=== PATIENT | female | born 1980 | race Caucasian/White ===

== ENCOUNTER 2020-03-20 13:55 | Emergency (ER) | payer BC, SELFPAY ==
--- NOTE | ~2020-03-20 | XR_ITS ---
EXAMINATION: XR chest 1V portable EXAM DATE: 03/20/2020 16:05 INDICATION: Midsternal chest pain. COVID positive. TECHNIQUE: Portable AP frontal chest x-ray was obtained. There is no prior study for comparison. FINDINGS: The lungs are clear. There are no pleural effusions. The cardiomediastinal silhouette is within normal limits. There is no pneumothorax suspected. The bones and soft tissues are unremarkab le. IMPRESSION: No acute cardiopulmonary findings. Reviewed, dictated and finalized at location B. [facility]AL[facility] MANAGER
[2020-03-20 14:55] VITALS: BP 143/93; PULSE 100; RESP 12; TEMP 36.3; O2SAT 99
--- NOTE | 2020-03-20 14:57 | ECG_ITS ---
Measurements Intervals [place] Rate: 82 P: 73 WA: 152 QRS: -21 QRSD: 109 T: 66 QT: 377 QTc: 442 Interpretive Statements SINUS RHYTHM WITH SINUS ARRHYTHMIA DELAYED PRECORDIAL R/S TRANSITION BASELINE WANDER- I, II, III BORDERLINE ECG Electronically Signed On 03-20-2020 15:06:02 HARD TILE SETTER by Heriberto Scales D.O.
[2020-03-20 15:12] LABS: Basophils Percent Auto 0.2 % (0.2-1.2); Eosinophils Absolute Auto 0.1 K/mm3 (0-0.3); Eosinophils Percent Auto 0.7 % (0-4.4); Hematocrit 43.9 % (37.0-47.0); Immature Granulocyte Absolute 0.03 K/mm3 (0.00-0.031); Immature Granulocyte Percent A 0.4 % (0-0.5); Lymphocytes Absolute Auto 2.06 K/mm3 (0.9-3.2); Lymphocytes Percent Auto 24.1 % (18.3-44.2); Mean Corpuscular HGB Conc 34.2 g/dl (32-36); Mean Corpuscular Hemoglobin 29.7 pg (26-34); Mean Corpuscular Volume 86.9 fl (80-100); Mean Platelet Volume 9.3 fl (7.4-10.4); Monocytes Absolute Auto 0.5 K/mm3 (0.1-0.6); Monocytes Percent Auto 6.2 % (2.6-8.5); Neutrophils Absolute Auto 5.8 K/mm3 (1.3-6.7); Neutrophils Percent Auto 68.4 % (45.5-73.1); Platelet Count Result 304 k/mm3 (150-375); Red Blood Count 5.05 M/mm3 (4.2-5.4); Red Cell Distribution Width 13.2 % (11.5-14.5); White Blood Count 8.5 K/mm3 (4.5-10.0)
[2020-03-20 15:24] LABS: Anion Gap 5 mmol/L (8-16); Blood Urea Nitrogen 12 mg/dL (7-17); Calcium 9.2 mg/dL (8.4-10.2); Carbon Dioxide 25 mmol/L (22-30); Chloride 107 mmol/L (98-107); Estimated CRCL calculation 132 ml/min; Estimated Glomerular Filt Rate > 60; Glucose 96 mg/dL (65-105); Sodium 137 mmol/L (137-145)
[2020-03-20 15:53] VITALS: BP 125/83; PULSE 83; PULSE 94; RESP 21; O2SAT 95
--- NOTE | 2020-03-20 15:53 | PC.NURSE ---
Pt made this RN aware that she is Covid +
--- NOTE | 2020-03-20 16:10 | ED.SOB ---
HPI - SOB/Dyspnea General Chief Complaint: Shortness of Breath/Dyspnea Stated Complaint: covid+, sob Time Seen by Provider: 03/20/20 16:02 Source: patient Mode of arrival: ambulatory Limitations: no limitations History of Present Illness HPI Narrative: A 39-year-old female presented to the emergency department today with complaints of shortness of breath. Patient states she was recently diagnosed with Covid. Dates that she has been dealing with this without any difficulties. Patient notes that today while trying to walk up her stairs at home she felt a slight pressure in her chest felt tingling in her arms and her legs and became very anxious. Patient states that she is a smoker, is worried about what Covid could be doing to her and may have lightened up the anxiety gotten the best of her. Resting in the bed now patient states she is feeling better but still a little anxious. Related Data Allergies Allergy/AdvReac Type Severity Reaction Status Date / Time Penicillins Allergy Mild Unknown Verified 03/20/20 15:58 Tetanus Vaccines and Toxoid Allergy Unknown RASH Verified 03/20/20 15:58 Review of Systems Review of Systems: Narrative: CONSTITUTIONAL: Denies fever, chills, or sweats. EYES: Denies visual changes, redness, or discharge. ENT: Denies rhinorrhea, congestion, sore throat, or otalgia. CARDIOVASCULAR: Denies chest pain, palpitations, or edema. Endorses chest pressure RESPIRATORY: Denies cough or dyspnea. GASTROINTESTINAL: Denies abdominal pain, nausea, vomiting, or diarrhea. GENITOURINARY: Denies dysuria or hematuria. SKIN: Denies rash or itching. MUSCULOSKELETAL: Denies back pain, joint pain, or myalgia. NEUROLOGIC: Denies headache, numbness, dizziness, or weakness. PSYCHIATRIC: Patient states that she is feeling very anxious. PMFSH Social History Social History Smoking packs per day: 0.5 Smoking cigarettes per day: 10.0 Years smoked: 20 Smoking pack-years: 10.00 Smoking status: Current every day smoker Tobacco type: cigarettes Alcohol intake: current Substance use: never Exam Narrative: Exam Narrative: GENERAL: Well-appearing, well-nourished, and in no acute distress. HEAD: Normocephalic, atraumatic. EYES: PERRLA and EOMI. ENT: Nares clear, no rhinorrhea or epistaxis. Mucous membranes moist. Oropharynx without tonsillar hypertrophy exudate or other lesions. Bilateral TMs pearly barrett nonbulging NECK: Supple. No adenopathy or masses. No carotid bruits or JVD CHEST: Clear to auscultation. No respiratory distress. No wheezes rales or rhonchi HEART: Regular rate and rhythm. No murmur heard. Normal peripheral pulses. ABDOMEN: Soft, nontender, nondistended, normal active bowel sounds. EXTREMITIES: Normal range of motion. No edema. SKIN: Warm, dry, no rash. NEURO: No focal deficits. Alert and oriented x3. PSYCH: Patient is very anxious and tearful. Course Reevaluation(s) Reevaluation #1: Patient resting comfortably at this time. She states that her anxiety has much improved. Patient was asking about sinusitis and Covid treatment. She showed me a list of medications that a friend of hers is treating her Covid case with. This consisted of many [id number] herbal supplements. While I informed her that I do not see any downside I could not speak to how effective they would be. We did discuss possibly getting a multivitamin instead which she was in favor of. Patient will be given a prescription for Vistaril for both her anxiety and her sinusitis type symptoms. She was also recommended to take [id number] ibuprofen or Tylenol for aches and pains. Date: 03/20/20 Time: 17:27 Vital Signs Vital signs: Vital Signs Temperature 36.3 C L 03/20/20 14:55 Pulse Rate 100 03/20/20 14:55 Respiratory Rate 12 03/20/20 14:55 Blood Pressure 143/93 H 03/20/20 14:55 Pulse Oximetry 99 03/20/20 14:55 Temperature 36.3 C L 03/20/20 14:55 Pulse
[2020-03-20] MEDS: LORazepam INJ (*CRX) 2 MG/ML VIAL 1 MG IV PUSH (17:17)
[2020-03-20 17:18] LABS: Troponin I < 0.012 ng/mL (0.000-0.034)
[2020-03-20 17:56] VITALS: BP 126/86; PULSE 92; RESP 17; O2SAT 98
== END 2020-03-20 17:55 | disposition home or self-care (01) ==
PROVIDERS: Emergency Medicine; Emergency Provider Emergency Medicine
DX: U07.1 COVID-19 (principal); F41.9 Anxiety disorder, unspecified; F17.210 Nicotine dependence, cigarettes, uncomplicated; R94.31 Abnormal electrocardiogram [ECG] [EKG]
CPT/HCPCS: 36415; 71045; 80048; 84484; 85025; 93005; 96374; 99284; J2060

== ENCOUNTER 2022-07-09 16:25 | Emergency (ER) | payer BC, SELFPAY ==
--- NOTE | 2022-07-09 16:30 | ED.GENADULT ---
HPI - General Adult General Chief complaint: Extremity Problem,Nontraumatic Stated complaint: swelling left leg( vein popped) Time Seen by Provider: 07/09/22 16:33 Source: patient, RN notes reviewed and old records reviewed Mode of arrival: ambulatory Limitations: no limitations History of Present Illness HPI narrative: 42-year-old female presents to the [facility] with concerns of a ?pain popping. ? Patient has a history of varicose veins. Noticed a bruise that was raised to the left anterior lower leg. Came to the [facility] for evaluation. There is no erythema. No swelling noted. Reports being tender to touch. No treatment prior to arrival Related Data Home Medications Medication Instructions Recorded Confirmed No Home Medications 07/09/22 07/09/22 Allergies Allergy/AdvReac Type Severity Reaction Status Date / Time Penicillins Allergy Mild Unknown Verified 03/20/20 15:58 Tetanus Vaccines and Toxoid Allergy Unknown RASH Verified 03/20/20 15:58 Review of Systems Review of Systems: All systems reviewed & are unremarkable except as noted in HPI and below Constitutional: Constitutional: Reports no additional constitutional complaints Eyes: Eyes: Reports no additional eye complaints ENT: Reports system reviewed and no additional complaints, except as documented Cardiovascular: Cardiovascular: Reports no additional cardiovascular complaints, Denies chest pain and Denies dyspnea Respiratory: Respiratory: Reports no additional respiratory complaints, Denies chest congestion, Denies cough and Denies dyspnea Gastrointestinal: Gastrointestinal: Reports no additional gastrointestinal complaints, Denies abdominal pain, Denies nausea and Denies vomiting Musculoskeletal: Musculoskeletal: Reports no additional musculoskeletal complaints Integumentary/Breasts: Skin/Breast: Reports as per HPI Neurologic: Reports system reviewed and no additional complaints, except as documented Psychiatric: Psychiatric: Reports no additional psychiatric complaints Allergic/Immunologic: Allergic/Immunologic: Reports no additional allergic/immunologic complaints [facility] Social History Social History Smoking packs per day: 0.5 Smoking cigarettes per day: 10.0 Years smoked: 20 Smoking pack-years: 10.00 Smoking status: Current every day smoker Tobacco type: cigarettes Alcohol intake: current Substance use: never Comments At the time of my signature, I reviewed and agree with the nursing past medical, surgical, social, and family history. There is no relevant family history pertinent to the patient complaint. Exam Const: General: cooperative, healthy appearing, comfortable, no acute distress, well developed, alert and well nourished Nutritional Appearance: well nourished Orientation/consciousness: patient oriented x3 Limitations: no limitations HENMT: Head: normal to inspection Ears: hearing grossly normal bilaterally and external ears normal Face/Nose/Sinus: Normal external nose present, Normal nares present, Normal nasal mucous membranes and turbinates present and normal facial exam Face and sinus: normal facial exam Eyes: General: appearance normal, both eyes and all related structures Alignment and Position: alignment normal Periorbital: periorbital findings normal Conjunctivae: conjunctivae normal Pupils: Equal, round and reactive pupils present EOM: EOMs intact bilaterally Neck: Neck: normal visual inspection, full ROM, no lymphadenopathy and no meningeal signs Chest: Chest palpation & inspection: normal inspection of the chest Resp: Effort & Inspection: normal respiratory effort and able to speak in complete sentences Auscultation: clear to auscultation bilaterally, no crackles, no rales, no rhonchi and no wheezes Cardio: Rate: regular rate Rhythm: regular rhythm Back/Spine/Pelvis: Cervical Spine: cervical ROM normal Thoracic/Lumbar Spine: No th
[2022-07-09 16:35] VITALS: BP 136/90; PULSE 86; RESP 18; TEMP 36.3; O2SAT 100
== END 2022-07-09 16:43 | disposition home or self-care (01) ==
PROVIDERS: Emergency Provider Nurse Practitioner
DX: I83.92 Asymptomatic varicose veins of left lower extremity (principal); S80.12XA Contusion of left lower leg, initial encounter; X58.XXXA Exposure to other specified factors, initial encounter; F17.210 Nicotine dependence, cigarettes, uncomplicated
CPT/HCPCS: 99212; G0463

== ENCOUNTER 2022-11-22 09:47 | Emergency (ER) | payer BC, SELFPAY ==
--- NOTE | 2022-11-22 09:57 | ED.URI ---
HPI - URI/Sore Throat General Chief Complaint: Upper Respiratory Infection Stated Complaint: congestion Time Seen by Provider: 11/22/22 10:24 Source: patient and RN notes reviewed Mode of arrival: ambulatory Limitations: no limitations History of Present Illness HPI Narrative: 42 year old female presents with concern for 3 day history of cough, nasal congestion. She has been taking Dayquil and Nyquil without relief. She denies fever, SOB MD elicited complaint: cough and nasal congestion Related Data Allergies Allergy/AdvReac Type Severity Reaction Status Date / Time Penicillins Allergy Mild Unknown Verified 11/22/22 10:10 Tetanus Vaccines and Toxoid Allergy Unknown RASH Verified 11/22/22 10:10 Review of Systems Review of Systems: CONSTITUTIONAL: Denies malaise, chills, sweats, or fever. EYES: Denies visual changes, redness, or discharge. ENT: Reports rhinorrhea, congestion. Denies sinus pain, otalgia and sore throat. CARDIOVASCULAR: Denies chest pain, palpitations, or edema. RESPIRATORY: Reports cough. Denies dyspnea. GASTROINTESTINAL: Denies abdominal pain, nausea, vomiting, diarrhea SKIN: Denies rash or itching. MUSCULOSKELETAL: Denies myalgia. NEUROLOGIC: Reports headache. All systems reviewed & are unremarkable except as noted in HPI and below PMFSH Social History Social History Smoking packs per day: 0.5 Smoking cigarettes per day: 10.0 Years smoked: 20 Smoking pack-years: 10.00 Smoking status: Current every day smoker Tobacco type: cigarettes Alcohol intake: current Substance use: never Comments At time of signature, agree with nursing past medical, surgical, social and family history. There is no relevant family history pertinent to the presenting complaint Exam Narrative: GENERAL: Well-appearing, well-nourished, and in no acute distress. HEAD: Normocephalic EYES: PERRLA, conjunctivae clear ENT: Nares clear, turbinates edematous and erythematous, clear discharge. Mucous membranes moist. TM pearly barrett with dull light reflex bilaterally; no tragal tenderness. Oropharynx not erythematous without lesions. Tonsils not enlarged and without exudate, no drooling, no hoarseness, no trismus, uvula midline. NECK: Supple. No lymphadenopathy CHEST: Clear to auscultation, breath sounds equal. No wheezing, rhonchi, rales, or stridor. No respiratory distress, speaks in full sentences. HEART: Regular rate and rhythm. No murmur heard. SKIN: Warm, dry, no rash. NEURO: Alert and oriented x3. PSYCH: Normal mood and affect Course Course Emergency Course: Patient is aware of diagnosis, understands and agrees to treatment plan. Anticipatory guidance given. Patient agrees to follow-up as directed and is aware of reasons to seek care at the emergency department. Portions of this record may have been created with voice recognition software Level of Care: Express Care Visit Vital Signs Vital signs: Reviewed. MDM - URI/Sore Throat MDM Narrative Medical decision making narrative: Differential diagnosis considered: Bowser virus, strep pharyngitis, allergic rhinitis, upper respiratory tract infection, sinusitis, rhinosinusitis, nasopharyngitis. viral pharyngitis, otitis media, otitis externa, pneumonia, bronchitis, viral cough syndrome, viral syndrome, and influenza. Exam findings show no acute concerns or changes; patient is non-toxic appearing and is in no distress. Patient is appropriate for outpatient treatment and follow-up. Lab Data Attestation: I reviewed the patient's lab results. Critical Care Time Critical Care Time Critical Care Time: No Discharge Plan Discharge Clinical Impression: Upper respiratory infection Patient Disposition: Home, Self-Care Condition: Stable Instructions: Upper Respiratory Infection (ED) Additional Instructions: Your rapid COVID and flu tests are negative Viral illness may last between 7-21 days; anti
[2022-11-22 10:01] VITALS: BP 131/89; PULSE 93; RESP 16; TEMP 36.2; O2SAT 100
== END 2022-11-22 10:35 | disposition home or self-care (01) ==
PROVIDERS: Emergency Provider Nurse Practitioner
DX: J06.9 Acute upper respiratory infection, unspecified (principal); Z20.822 Contact with and (suspected) exposure to COVID-19; F17.210 Nicotine dependence, cigarettes, uncomplicated
CPT/HCPCS: 87426; 87804; 99213; C9803; G0463

== ENCOUNTER 2024-03-04 14:59 | Outpatient (CLI) | payer BC, SELFPAY ==
--- NOTE | ~2024-03-04 | MM_ITS ---
EXAMINATION: MM screening [facility] BI w tiffanie HISTORY: Baseline. Significant family history of breast cancer, diagnosed in patient's mother in her 30s. TECHNIQUE: Craniocaudal and mediolateral oblique 3-D tomosynthesis images were obtained and synthetic 2-D images were generated. CAD analysis was submitted and interpreted. COMPARISON: None BREAST PARENCHYMAL COMPOSITION: There are scattered areas of fibroglandular density. FINDINGS: Punctate calcification within the lower inner right breast, dermal in origin and benign in appearance. Unremarkable parenchymal pattern without suspicious microcalcifications, architectural distortion, di screte masses or significant asymmetry. IMPRESSION: 1. No mammographic or tomographic evidence of malignancy. 2. Recommend routine screening mammography in one year. BI-RADS Category 2: Benign finding(s). Patient needs a risk assessment to determine whether she is a candidate for high-risk screening breas t MRI given her significant family history of breast cancer. Reviewed, dictated and finalized at location A. ER OPERATOR IMPRESSION: 1. No mammographic or tomographic evidence of malignancy. 2. Recommend routine screening mammography in one year. BI-RADS Category 2: Benign finding(s). Patient needs a risk assessment to determine whether she is a candidate for hig h-risk screening breast MRI given her significant family history of breast canc er.
== END 2024-03-04 15:00 | disposition home or self-care (01) ==
LOC: MICIMG 15:02
PROVIDERS: PCP Physician Assistant; Visit Provider Physician Assistant
DX: Z12.31 Encounter for screening mammogram for malignant neoplasm of breast (principal)
CPT/HCPCS: 77063; 77067

== ENCOUNTER 2024-12-28 08:39 | Emergency (ER) | payer BC, SELFPAY ==
[2024-12-28 08:49] VITALS: BP 138/76; PULSE 71; RESP 16; TEMP 36.6; O2SAT 96
--- NOTE | 2024-12-28 08:57 | ED_ITS ---
HPI - General Adult General Chief complaint: Skin/Abscess/Foreign Body Stated complaint: Possible Bat Bite Time Seen by Provider: 12/28/24 08:55 Source: patient, RN notes reviewed and old records reviewed Mode of arrival: ambulatory Limitations: no limitations History of Present Illness HPI narrative: 44 year old female presents to [facility] care with complaints of walking her dog this morning and a bat flew towards her and she raised her arm in protective response and bat brushed against her bare forearm. Patient reports not sure of bite and concerned if she needs to have rabies shot. Patient reports that bite brushed against her right forearm with no redness or any visible bat bite noted. MD complaint: exposure to bat Onset (ago): hour(s) (this morning prior to arrival) Location: right and upper extremity Treatments prior to arrival: none Related Data Home Medications ?Medication ?Instructions ?Recorded ?Confirmed ?Last Taken ?Type propranolol 60 mg capsule,24 mg PO 12/28/24 Unknown H istory hr,extended release Allergies Allergy/AdvReac Type Severity Reaction Status Date / Time Penicillins Allergy Mild Unknown Verified 12/28/24 09:47 ibuprofen Allergy rash Verified 12/28/24 09:47 Review of Systems Review of Systems: CONSTITUTIONAL: Denies fever, chills, or sweats. EYES: Denies visual changes, redness, or discharge. ENT: Denies rhinorrhea, congestion, sore throat, or otalgia. CARDIOVASCULAR: Denies chest pain, palpitations, or edema. RESPIRATORY: Denies cough or dyspnea. GASTROINTESTINAL: Denies abdominal pain, nausea, vomiting, or diarrhea. GENITOURINARY: Denies dysuria or hematuria. SKIN: Denies rash or itching, denies any known bat bite on skin, bat did brush against her bare skin right forearm MUSCULOSKELETAL: Denies back pain, joint pain, or myalgia. NEUROLOGIC: Denies headache, numbness, or weakness. PSYCHIATRIC: Positive for history of anxiety or depression. All systems reviewed & are unremarkable except as noted in HPI and below PMFSH Past Medical History Medical History Anxiety Migraine Social History Social History Smoking packs per day: 0.5 Smoking cigarettes per day: 10.0 Years smoked: 20 Smoking pack-years: 10.00 Smoking status: Former smoker Tobacco type: cigarettes Additional smoking assessment comments: quit 3 tears ago Alcohol intake: current Substance use: never Gender identity (if verbalized by the patient): Female Comments At time of signature, agree with nursing past medical, surgical, social and family history. There is no relevant family history pertinent to the presenting complaint Exam Narrative: GENERAL: Well-appearing, well-nourished, and in no acute distress. HEAD: Normocephalic, atraumatic. EYES: PERRLA and EOMI. ENT: Nares clear, no rhinorrhea or epistaxis. Mucous membranes moist. NECK: Supple. no lymphadenopathy CHEST: Clear to auscultation. No respiratory distress. SAO2 96% on room air HEART: Regular rate and rhythm. No murmur heard. Normal peripheral pulses. ABDOMEN: Soft, nontender, nondistended, normal active bowel sounds. EXTREMITIES: Normal range of motion. No edema. SKIN: Warm, dry, no rash noted or any sign of bite on right forearm, reports bat did brush against her skin. NEURO: No focal deficits. Alert and oriented x3. Course Course Emergency Course: Patient is aware of diagnosis, understands and agrees to treatment plan.? Anticipatory guidance given.? Patient agrees to follow-up as directed and is aware of reasons to seek care at the emergency department. Portions of this record may have been created with voice recognition software Level of Care: Express Care Visit Vital Signs Vital signs: Vital Signs Temperature 36.6 C 12/28/24 08:49 Pulse Rate 71 12/28/24 08:49 Respiratory Rate 16 12/28/24 08:49 Blood Pressure 138/76 12/28/24 08:49 Pulse Oximetry 96 12/28/24 08:49 Oxygen Delivery Room Air 12/28/24 08:49 Temperature 36.6 C 12/28/24 08:49 Pulse Rate 71 12/28/24 08:49 Respiratory Rate 16 12/28/24 08:49 Blood Pressure 138/76 12/28/24 08:49 Pulse Oximetry 96 12/28/24 08:49 Oxygen Delivery Room Air 12/28/24 08:49 Reviewed Transfer Transfered to: [facility] Transportation: Other (private car to ED) Transfer rationale: Bat exposure will need prophylaxis per collaborating physician's recommendation Accepting physician: Dr Schaeffer Transfer comments: To ED per private car Medical Decision Making MDM Narrative Medical decision making narrative: Exam findings and imaging show no acute concerns or changes; patient is non- toxic appearing and is in no distress.? Patient to be transferred to ED for rabies prophylaxis. Spoke with Dr Abdalla in regards to patient condition stated patient will require prophylaxis. [id number] Reports called to ED at [place] spoke with [facility] with [facility], condition update, PMH reviewed with Dr Schaeffer accepting physician. Differential Diagnosis Differential Diagnosis: bat exposure, concern for bite, prophylaxis Medical Records Medical records reviewed: Yes I reviewed the external patient's medical records. Vital Signs Vital Signs: Vital Signs Temperature 36.6 C 12/28/24 08:49 Pulse Rate 71 12/28/24 08:49 Respiratory Rate 16 12/28/24 08:49 Blood Pressure 138/76 12/28/24 08:49 Pulse Oximetry 96 12/28/24 08:49 Oxygen Delivery Room Air 12/28/24 08:49 Temperature 36.6 C 12/28/24 08:49 Pulse Rate 71 12/28/24 08:49 Respiratory Rate 16 12/28/24 08:49 Blood Pressure 138/76 12/28/24 08:49 Pulse Oximetry 96 12/28/24 08:49 Oxygen Delivery Room Air 12/28/24 08:49 reviewed Critical Care Time Critical Care Time Critical Care Time: No Discharge Plan Discharge Clinical Impression: Exposure to bat without known bite Patient Disposition: Home Condition: Stable Instructions: Antibiotic Form Patient Language: Monegasque Prescriptions: No Action propranolol 60 mg capsule,extended release 24 hr PO Follow-up/Referrals: Fern,ISHAAN Armstrong [Primary Care Provider, Unknown] Time of Disposition: 09:21 Quality [place] Coma Scale Eyes: Open Verbal: Oriented and Alert Motor: Follows Commands [place] Coma Total Score: 15
== END 2024-12-28 09:19 | disposition home or self-care (01) ==
PROVIDERS: Emergency Provider Registered Nurse; PCP Physician Assistant
DX: T75.89XA Other specified effects of external causes, initial encounter (principal); Z87.891 Personal history of nicotine dependence
CPT/HCPCS: 99212; G0463

== ENCOUNTER 2024-12-28 09:33 | Emergency (ER) | payer BC, SELFPAY ==
[2024-12-28 09:38] VITALS: BP 142/94; PULSE 74; RESP 16; TEMP 36.4; O2SAT 100
--- NOTE | 2024-12-28 10:07 | ED.ANIMALBIT ---
HPI - Animal Bite General Chief Complaint: Animal Bite Stated Complaint: exposure to a bat? Time Seen by Provider: 12/28/24 09:39 Source: patient and RN notes reviewed Mode of arrival: ambulatory Limitations: no limitations History of Present Illness HPI narrative: 44-year-old female presents to ER complaining of possible exposure to a bat. Patient said earlier this morning she was walking her dog when she saw about flying around her and she put her arms up to shoulder face when she fell off the bat brush her right forearm. Patient denies any injuries or wounds, denies the bat biting her. Patient said from urgent care she be treated for rabies. Patient's tetanus is up to date. Related Data Home Medications ?Medication ?Instructions ?Recorded ?Confirmed ?Last Taken ?Type propranolol 60 mg capsule,24 mg PO 12/28/24 Unknown History hr,extended release Allergies Allergy/AdvReac Type Severity Reaction Status Date / Time Penicillins Allergy Mild Unknown Verified 12/28/24 09:47 ibuprofen Allergy rash Verified 12/28/24 09:47 Review of Systems Review of Systems: CONSTITUTIONAL: Denies fever, chills, or sweats. EYES: Denies visual changes, redness, or discharge. ENT: Denies rhinorrhea, congestion, sore throat, or otalgia. CARDIOVASCULAR: Denies chest pain, palpitations, or edema. RESPIRATORY: Denies cough or dyspnea. GASTROINTESTINAL: Denies abdominal pain, nausea, vomiting, or diarrhea. GENITOURINARY: Denies dysuria or hematuria. SKIN: Denies rash, wounds, or itching. MUSCULOSKELETAL: Denies back pain, joint pain, or myalgia. NEUROLOGIC: Denies headache, numbness, or weakness. PSYCHIATRIC: Denies anxiety or depression. All other systems reviewed are negative, except as documented in HPI. FORMERLY [facility], [facility]–1983 Past Medical History Medical History Anxiety Migraine Social History Social History Smoking packs per day: 0.5 Smoking cigarettes per day: 10.0 Years smoked: 20 Smoking pack-years: 10.00 Smoking status: Former smoker Tobacco type: cigarettes Additional smoking assessment comments: quit 3 tears ago Alcohol intake: current Substance use: never Gender identity (if verbalized by the patient): Female Comments At the time of my signature, I reviewed and agree with the nursing past medical, surgical, social, and family history. There is no relevant family history pertinent to the patient complaint. Exam Narrative: GENERAL: This is a well-nourished, well-developed adult, in no apparent distress. They are non ill-appearing, nontoxic appearing. HEAD: normocephalic, atraumatic. EYES: Sclera clear/white. Conjunctiva normal. Vision is grossly intact. Extraocular movements intact EARS: External ears normal, Hearing grossly intact. NOSE: External nose normal THROAT: Mucous membranes moist, NECK: Neck supple. CARDIOVASCULAR: Regular rate and rhythm RESPIRATORY: Respiratory rate normal, respiratory effort nonlabored, no respiratory distress SKIN: warm, Dry, intact with no suspicious lesions or rash, good texture and turgor. Right forearm: No obvious wound coming injury, scratch, redness, swelling, bruising, discharge. NEURO: awake, alert, and oriented to person, place and time. There were no obvious focal neurologic abnormalities. EXTREMITIES: No joint tenderness, effusion, or edema noted. Course Course Emergency Course: Portions of this record may have been created with voice recognition software Vital Signs Vital signs: Vital Signs Temperature 97.6 F 12/28/24 09:38 Pulse Rate 74 12/28/24 09:38 Respiratory Rate 16 12/28/24 09:38 Blood Pressure 142/94 H 12/28/24 09:38 Pulse Oximetry 100 12/28/24 09:38 Oxygen Delivery Room Air 12/28/24 09:38 Temperature 97.6 F 12/28/24 09:38 Pulse Rate 74 12/28/24 09:38 Respiratory Rate 16 12/28/24 09:38 Blood Pressure 142/94 H 12/28/24 09:38 Pulse Oximetry 100 12/28/24 09:38 Oxygen Delivery Room Air 12/28/24 09:38 Reviewed MDM - Animal Bite MDM Narrative Medical decision making narrative: No evidence of injury or wounds to the patient's right former she said the bat make contact with her arm. No other injuries or wounds identified. Given patient's exposure to about will prophylactically treat for rabies prevention. Patient was given immunoglobin injections to the right forearm where she said the bat made contact with her stairs also cleaned well with ChloraPrep along with soap and water. Patient was also given him in the and globulin injection to the right vastus lateralis. Patient was given a rabies vaccine injection to left deltoid. The hospital's Infectious Disease nurse will get in touch with the patient to schedule her additional vaccines on day 3, day 7, day 14. Patient was given the prescription to take to her appointments. Tetanus is up-to-date.. Since there is no wounds, no indication for antibiotic therapy is necessary. Discussed physical exam findings. Advised supportive measures and signs/symptoms to go to the ER. Pt is appropriate for outpt treatment and f/u. Differential Diagnosis Differential diagnosis: Likely bite by animal, rabies contact and other (Bit by bat) Critical Care Time Critical Care Time Critical Care Time: No Discharge Plan Discharge Clinical Impression: Exposure to bat without known bite, Rabies vaccine administered Patient Disposition: Home Condition: Stable Instructions: Rabies Vaccine (By injection), Rabies Immune Globulin (By injection), Rabies (ED) Additional Instructions: Your given the rabies vaccine today along with a rabies immunoglobulin. You will need additional rabies vaccines on day 3, day 7, day 14. You will be contacted by our Infectious Disease nurse to schedule these injections. Today is day 0. There is no obvious wound, wash the area daily with mild soap and water. Follow-up with your PCP in 1 week. Return to ER if he develops any redness, swelling, pain, fevers, headache, body aches, confusion, nausea, vomiting, or any serious concerns. Patient Language: [place] Prescriptions: No Action propranolol 60 mg capsule,extended release 24 hr PO Follow-up/Referrals: Fern,ISHAAN Armstrong [Primary Care Provider, Unknown] Stand Alone Forms: Work/School Release IP Time of Disposition: 11:13
[2024-12-28] MEDS: RABIES VACCINE (RABAVERT) 2.5 UNITS VIAL IM (10:48)
[2024-12-28] MEDS: RABIES IMMUNE GLOBULIN 1644 UNITS IM (10:54)
--- OUTSIDE RECORDS SUMMARY | 2024-12-28 11:01 | XMS_ITS | Clinical Summary ---
Author Organization [email or web address] Address [address] [place] [address] Care Team Providers Care Application Development Project Manager Name Role Phone Patti Shirley PA-C Primary Care Provider Source Comments [facility],non-owned Affiliates and Associated Physician Practices is amultiple site organization consisting of ambulatory clinics and hospital sitesin [place], [place], [place] and [place]. This disclosure is being madepursuant to the Care Everywhere program and may not contain all information available regarding this patient. Last updated 17.[email or web address] Allergies Active Allergy Reactions Criticality Noted Date Comments Penicillins 10/10/2013 Medications * Be aware that medications may not be up to date on this document. Alwaysverify current medications with the patient. diphenhydrAMINE (BENADRYL) 25 MG capsule Take 1 Cap by mouth every 4 hours as needed for Itching. 30 Cap 0 10/10/2013 Active predniSONE (DELTASONE) 10 MG tablet Take 4 tablets daily for 4 days, Then take 3 tablets daily for 2 days, Then take 2 tablets daily for 2 days, Then take 1 tablet daily for 2 days 28 Tab 0 10/10/2013 Active cyclobenzaprine (Flexeril) 10 MG tablet Take 1 (one) tablet by mouth 3 times daily as needed for Muscle Spasms 20 tablet 12/08/2023 Active Social History Tobacco Use Types Packs/Day Years Used Date Smoking Tobacco: Never Assessed Comments Unknown Sex and Gender Information Value Date Recorded Sex Assigned at Not on file Legal Sex Female 1:15 PM CDT Gender Identity Not on file Sexual Orientation Not on file Last Filed Vital Signs Vital Sign Reading Time Taken Comments Blood Pressure 144/80 12/08/2023 12:26 PM CDT Pulse 88 12/08/2023 12:26 PM CDT Temperature 36.7 C (98.1 F) 12/08/2023 10:11 AM CDT Respiratory Rate 18 12/08/2023 12:26 PM CDT Oxygen Saturation 97% 12/08/2023 10:11 AM CDT Inhaled Oxygen Concentration - - Weight 81.6 kg (180 lb) 12/08/2023 10:11 AM CDT Height 172.7 cm (5' 8) 12/08/2023 10:11 AM CDT Body Mass Index 27.37 12/08/2023 10:11 AM CDT Plan of Treatment Health Maintenance Due Date Last Done Comments LIPID TESTING 1980 MAMMOGRAM 1980 HIV SCREENING 1995 HEPATITIS C SCREENING 04/01/1998 DTAP/TDAP/TD VACCINES (1 - Tdap) 1999 HEPATITIS B VACCINE (1 of 3 - 19+ 3-dose series) 1999 PAP SMEAR 2001 HPV VACCINE (1 - 3-dose SCDM series) 2007 DEPRESSION SCREENING 03/10/2024 COVID-19 VACCINE ( season) 2024 01/12/2021, 05/26/2020, 05/26/2020, Additional history exists INFLUENZA VACCINE (#1) 2024 12/14/2020 ZOSTER VACCINE (1 of 2) 2030 HIB VACCINE Aged Out No longer eligi ble based on patient's age to complete this topic MENINGOCOCCAL (Group B) VACCINE SHARED DECISION-MAKING Aged Out No longer eligible based on patient's age to complete this topic MENINGOCOCCAL GROUPS A/C/Y/W VACCINE Aged Out No longer eligible based on patient's age to complete this topic PNEUMOCOCCAL VACCINE Aged Out No long er eligible based on patient's age to complete this topic Insurance [employer] Care Teams Application Development Project Manager Relationship Specialty Start Date End Date Patti Shirley PA-C [address] [place] [id number] PCP - General 12/08/23
--- OUTSIDE RECORDS SUMMARY | 2024-12-28 11:01 | XMS_ITS | Clinical Summary ---
Author Organization [facility] Address [facility] [place] [address] Care Team Providers Care Track Rider Name Role Phone Patti Shirley PA-C Primary Care Provider +1- [phone] Allergies Active Allergy Reactions Criticality Noted Date Comments Penicillins Rash Low 12/09/2023 Medications No known medications Social History Tobacco Use Types Packs/Day Years Used Date Smoking Tobacco: Never Assessed Comments Unknown Sex and Gender Information Value Date Recorded Sex Assigned at Not on file Legal Sex Female 9:14 PM CDT Gender Identity Not on file Sexual Orientation Not on file Last Filed Vital Signs Vital Sign Reading Time Taken Comments Blood Pressure 126/79 12/09/2023 2:00 PM CDT Pulse 75 12/09/2023 2:00 PM CDT Temperature 36.9 C (98.5 F) 12/09/2023 11:45 AM CDT Respiratory Rate 22 12/09/2023 2:00 PM CDT Oxygen Saturation 99% 12/09/2023 2:00 PM CDT Inhaled Oxygen Concentration - - Weight 81 kg (178 lb 9.2 oz) 12/09/2023 11:45 AM CDT Height 172.7 cm (5' 8) 12/09/2023 11:45 AM CDT Body Mass Index 27.15 12/09/2023 11:45 AM CDT Plan of Treatment Health Maintenance Due Date Last Done Comments Cervical Cancer Screening Pa p Smear (Age 30 to 64) Every 3 Years 1980 Annual Physical 1983 Hepatitis C 1998 DTaP, Tdap and Td Vaccines ( 1 - Tdap) 1999 Hepatitis B Vaccines (1 of 3 - 19+ 3-dose series) 1999 HPV Vaccines (1 - 3-dose SCD M series) 2007 Cervical Cancer Screening Pa p with HPV Testing (Age 30 to 64) Every 5 Years 2010 Cervical Cancer Screening wi th HPV 2010 Mammogram Screening 2020 COVID-19 Vaccine (3 - 2024-2 6 season) 2024 05/26/2020, 05/02/2020 Influenza Adult (#1) 2024 Meningococcal B Vaccine Aged Out No l onger eligible based on patient's age to complete this topic Meningococcal Vaccine Aged Out No olesya mason eligible based on patient's age to complete this topic Pneumococcal Vaccine: Pediatrics (0 to 5 Years) and At-Risk Patients (6 to 49 Years) Aged Out No longer eligible b ased on patient's age to complete this topic RSV Immunizations Under 20 Months Aged Out No longer eligible b ased on patient's age to complete this topic Insurance [employer] Care Teams Track Rider Relationship Specialty Start Date End Date Patti Shirley PA-C [address] [place] [phone] PCP - General PHYSICIAN FREIGHT [employer] BRAKE FITTER 12/09/23
--- OUTSIDE RECORDS SUMMARY | 2024-12-28 12:53 | XMS_ITS | Clinical Summary ---
Author Organization [facility] Address [facility] [place] [address] Care Team Providers Care Portrait Studio Photographer Name Role Phone Patti Shirley PA-C Primary Care Provider +1- [phone] Allergies Active Allergy Reactions Criticality Noted Date [...] Insurance [employer] Care Teams Portrait Studio Photographer Relationship Specialty Start Date End Date Patti Shirley PA-C [address] [place] [phone] PCP - General PHYSICIAN REIMBURSEMENT ANALYST 12/09/23
--- OUTSIDE RECORDS SUMMARY | 2024-12-28 12:54 | XMS_ITS | Clinical Summary ---
Author Organization [facility] [employer] Address [address] [place] [address] Care Team Providers Care Grout Machine Operator Name Role Phone Patti Shirley PA-C Primary Care Provider Source Comments [facility],non-owned Affiliates and Associated Physician Practices is amultiple site organization consisting of ambulatory clinics and hospital sitesin [place], [place], [place] and [place]. This disclosure is being madepursuant to the Care Everywhere program and may not contain all information available regarding this patient. Last updated 17.[facility] [employer] Allergies Active Allergy Reactions Criticality Noted Date [...] [employer] Care Teams Grout Machine Operator Relationship Specialty Start Date End Date Patti Shirley PA-C [address] [place] [phone] PCP - General 12/08/23
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
== END 2024-12-28 13:04 | disposition home or self-care (01) ==
PROVIDERS: PCP Physician Assistant
DX: Z20.3 Contact with and (suspected) exposure to rabies (principal); Z29.14 Encounter for prophylactic rabies immune globulin; Z23 Encounter for immunization; Z87.891 Personal history of nicotine dependence
CPT/HCPCS: 90375; 90471; 90472; 90675; 96372; 99283

== ENCOUNTER 2025-01-25 02:00 | Day surgery (SDC) | payer BC, SELFPAY ==
[2025-01-21 15:02] VITALS: BMI 27.8
[2025-01-25 06:50] VITALS: BP 126/90; PULSE 79; RESP 18; TEMP 36.4; O2SAT 98; BMI 27.3
[2025-01-25 07:07] LABS: BEDSIDEPREGUCG Negative (Negative)
--- NOTE | 2025-01-25 07:07 | P.PNAN_ITS ---
Anes - Initial Pre Proc Eval Procedure: Operation Date: 01/25/25 08:00 Proposed Procedures p Screening Colonoscopy - Randy Whelan MD Date/Time: 01/25/25 07:07 Surgeon: Randy Whelan MD Pre Op Diagnosis: Encounter for screening for malignant neoplasm of Patient Data Age: 44 Gender: F Height: 1.73 m Weight: 81.4 kg Last Vital Signs Temp 97.6 F 01/25/25 06:50 Pulse 79 01/25/25 06:50 Resp 18 01/25/25 06:50 BP 126/90 01/25/25 06:50 Pulse Ox 98 01/25/25 06:50 O2 Del Method Room Air 01/25/25 06:50 Allergies Allergy/AdvReac Type Severity Reaction Status Date / Time Penicillins Allergy Mild Unknown Verified 01/25/25 07:00 ibuprofen Allergy rash Verified 01/25/25 07:00 Home Medications ?Medication ?Instructions ?Recorded ?Confirmed ?Type propranolol 60 mg capsule,24 60 mg PO Q24H PRN migrain es 12/28/24 01/25/25 History hr,extended release hydroxyzine HCl 25 mg tablet 25 mg PO DAILY 01/21/25 1 03/27/24 History Laboratory Tests 01/25/25 06:50 POC Urine HCG, Qual Negative (Negative) Patient hx anesthesia problems: none Family hx anesthesia problems: none Results Review: All pre-operative results and documents have been reviewed as part of the pre- operative evaluation. PMFSH Past Medical History Medical History Anxiety Migraine Social History Social History Smoking packs per day: 0.5 Smoking cigarettes per day: 10.0 Years smoked: 20 Smoking pack-years: 10.00 Smoking status: Former smoker Tobacco type: cigarettes Additional smoking assessment comments: quit 3 tears ago Alcohol intake: current Substance use: never Substance use type: does not use Living arrangements: with family Gender identity (if verbalized by the patient): Female Spiritual care concerns: No Anes - Eval Final PreProcedure Day of Procedure 01/25/25 07:07 Patient weight: normal Lungs: normal air movement Airway: Mallampati scale class II Neurological: alert and oriented Last oral intake: >/= 8 hours ASA classification: II Emergent: no Anesthetic plan: proceed Anesthesia type and monitoring: general GIVS and standard monitoring Results Review: All pre-operative results and documents have been reviewed as part of the pre- operative evaluation. Anxiety/migranes, active w 1-2 fos, no cp or sob. Informed Consent: The patient's anesthetic plan and its attendant risks and benefits were discussed with the patient/family/POA. Questions were solicited and answers provided to the satisfaction of the patient/family/POA.
[2025-01-25] MEDS: LACTATED RINGERS 1,000 ML 150 ML IV CONT (07:15)
--- NOTE | 2025-01-25 07:59 | P.HP_ITS ---
History of Present Illness History of Present Illness Consent: Risks, benefits, and alternatives have been discussed and questions answered. Patient agrees to proceed with procedure. Chief complaint: Encounter for screening for malignant neoplasm of Narrative: Princess Boudreaux is a 44 year old female here for first screening colonoscopy Review of Systems Review of Systems: All systems reviewed & are unremarkable except as noted in HPI and below PMFSH Past Medical History Medical History (Updated 01/25/25 @ 08:00 by Randy Whelan MD) Colon cancer screening Anxiety Migraine Social History Social History Smoking packs per day: 0.5 Smoking cigarettes per day: 10.0 Years smoked: 20 Smoking pack-years: 10.00 Smoking status: Former smoker Tobacco type: cigarettes Additional smoking assessment comments: quit 3 tears ago Alcohol intake: current Substance use: never Substance use type: does not use Living arrangements: with family Gender identity (if verbalized by the patient): Female Spiritual care concerns: No Meds Home Medications and Allergies Home Medications ?Medication ?Instructions ?Recorded ?Confirmed ?Type propranolol 60 mg capsule,24 60 mg PO Q24H PRN migrain es 12/28/24 01/25/25 H istory hr,extended release hydroxyzine HCl 25 mg tablet 25 mg PO DAILY 01/21/25 1 03/27/24 History Allergies Allergy/AdvReac Type Severity Reaction Status Date / Time Penicillins Allergy Mild Unknown Verified 01/25/25 07:00 ibuprofen Allergy rash Verified 01/25/25 07:00 Vital Signs Vital Signs - 24 hr 01/25/25 06:50 Temperature 97.6 F Pulse Rate 79 Respiratory Rate 18 Blood Pressure 126/90 Pulse Oximetry 98 Oxygen Delivery Room Air Exam Const: General: comfortable and no acute distress HENMT: Face/Nose/Sinus: Normal nares present Eyes: General: appearance normal, both eyes and all related structures Neck: Neck: no JVD Resp: Auscultation: clear to auscultation bilaterally Cardio: Rate: regular rate Rhythm: regular rhythm GI: Inspection: non-distended GI Palp: Yes Soft to palpation Skin: General skin exam: normal color Extrem: General: normal to inspection Psych: Mental Status: mental status grossly normal Assessment and Plan Assessment and plan (1) Colon cancer screening: Code(s): Z12.11 - Encounter for screening for malignant neoplasm of colon Status: Acute Assessment and Plan: colonoscopy
[2025-01-25 08:19] VITALS: BP 126/83; PULSE 74; RESP 19; O2SAT 100
[2025-01-25 08:29] VITALS: BP 133/82; PULSE 69; RESP 20; O2SAT 100
[2025-01-25 08:39] VITALS: BP 141/87; PULSE 62; RESP 22; O2SAT 100
== END 2025-01-25 08:58 | disposition home or self-care (01) ==
PROVIDERS: Anesthesiology; PCP Physician Assistant; Referring Provider Physician Assistant; Visit Provider Internal Medicine Gastroenterology
PROC: 0DJD8ZZ Inspection of Lower Intestinal Tract, Via Natural or Artificial Opening Endoscopic (ICD-10-PCS; CPT 45378; principal; 2025-01-25 08:00)
DX: Z12.11 Encounter for screening for malignant neoplasm of colon (principal); K64.8 Other hemorrhoids; Z87.891 Personal history of nicotine dependence
CPT/HCPCS: 45378; J2003; J2704; J7120